=== PATIENT | male | born 1950 | race Caucasian/White ===

== ENCOUNTER → 2023-08-04 06:21 | Day surgery (SDC) | payer OTHER, SELFPAY | LOC: GI 06:21 | PROVIDERS: ATTENDING PHYSICIAN Internal Medicine Gastroenterology | DX: R12 Heartburn (principal); K22.2 Esophageal obstruction; K21.00 Gastro-esophageal reflux disease with esophagitis, without bleeding; K31.89 Other diseases of stomach and duodenum; K29.50 Unspecified chronic gastritis without bleeding; K22.10 Ulcer of esophagus without bleeding | CPT/HCPCS: 43249; 88305; 88312; 88342 ==